=== PATIENT | female | born 1950 | race Caucasian/White ===

== ENCOUNTER 2019-06-21 15:21 | Emergency (ER) | payer OTHER, MEDICARE ==
[~2019-06-21] VITALS: Ht 154.9 cm; Wt 90.3 kg
[2019-06-21 15:39] VITALS: BP_SYST 162
[2019-06-21 16:44] LABS: BASOPHILS # (AUTO) 0.1 K/uL (0.0-0.2); BASOPHILS % (AUTO) 0.7 % (0.0-2.0); EOSINOPHILS # (AUTO) 0.2 K/uL (0.0-0.4); EOSINOPHILS % (AUTO) 2.2 % (0.0-4.0); HEMOGLOBIN 14.4 g/dL (12.0-16.0); LYMPHOCYTES # (AUTO) 2.2 K/uL (1.0-5.5); LYMPHOCYTES % (AUTO) 31.7 % (20.5-51.5); MEAN CORPUSCULAR HEMOGLOBIN 29 pg (27-31); MEAN CORPUSCULAR HGB CONC 34 % (32-36); MEAN CORPUSCULAR VOLUME 87 fL (79.0-98.0); MONOCYTES # (AUTO) 0.4 K/uL (0.0-1.0); MONOCYTES % (AUTO) 5.1 % (1.7-9.3); NEUTROPHILS # (AUTO) 4.2 K/uL (1.8-7.7); NEUTROPHILS % (AUTO) 60.3 % (40.0-70.0); PLATELET COUNT (AUTO) 299 K/uL (130-430); RED BLOOD CELL COUNT(AUTO) 4.94 MIL/uL (4.2-6.2); RED CELL DISTRIBUTION WIDTH 13.2 % (9.0-15.0); WHITE BLOOD COUNT (AUTO) 7.1 K/uL (4.8-10.8)
[2019-06-21 17:04] LABS: CALCIUM 9.4 mg/dL (8.4-11.0); CREATININE 0.76 mg/dL (0.55-1.30)
[2019-06-21 17:09] LABS: ALBUMIN 3.7 g/dL (3.4-4.8); TOTAL BILIRUBIN 0.4 mg/dL (0.0-1.0)
--- NOTE | 2019-06-21 17:15 | NUR ---
Patient to ER bed h1 for evaluation. Side rails up.
--- NOTE | 2019-06-21 17:27 | NUR ---
ER Dr. Simon at bedside examining patient.
--- NOTE | 2019-06-21 17:34 | NUR ---
Pt AAOx4 ambulated into ED c/o bump behind L ear, 4/10 pain, fever x 3-4 days. Referred to ED for head CT. No other injuries/complaints per pt/noted. Will continue to monitor.
--- NOTE | 2019-06-21 17:45 | NUR ---
Patient given written and verbal discharge instructions and verbalizes understanding. ER MD Simon discussed with patient the results and treatment provided. Patient in stable condition. ID arm band removed. Rx of Motrin, Keflex, Bactrim given. Patient educated on pain management and to follow up with PMD. Pain Scale 2. Opportunity for questions provided and answered. Medication side effect fact sheet provided.
[2019-06-21 17:46] VITALS: BP_SYST 148
== END 2019-06-21 17:46 | disposition home or self-care (01) ==
LOC: SED 15:21
DX: L03.811 Cellulitis of head [any part, except face] (principal)
CPT/HCPCS: 36415; 70450-TC; 80053; 83605; 85025; 87040-TC; 99284